=== PATIENT | male | born 1995 | race Caucasian/White ===

== ENCOUNTER 2017-08-03 22:34 | Inpatient (IN) | payer OTHER ==
[~2017-08-03] VITALS: Ht 160 cm; Wt 76.0 kg
[2017-08-03 22:36] VITALS: Ht 160 cm; Wt 76.0 kg
[2017-08-04 03:17] LABS: BASOPHIL % 1.6 % (0-2); PLATELET COUNT 273 x10^3mcL (130-400); RED CELL DISTRIBUTION WIDTH 13.3 % (11.5-14.5)
[2017-08-04 03:25] LABS: CALCIUM 8.3 mg/dL (8.5-10.1); CHLORIDE SERUM 107 mmol/L (98-107); CREATININE SERUM 0.9 mg/dL (0.7-1.3); GFR1 > 60 mL/min; GLUCOSE SERUM 121 mg/dL (74-106); POTASSIUM SERUM 3.7 mmol/L (3.5-5.1); SODIUM SERUM 142 mmol/L (136-145)
[2017-08-04 03:36] LABS: ALBUMIN 3.8 g/dL (3.4-5.0); ALKALINE PHOSPHATASE 218 U/L (46-116); ALT/SGPT 792 U/L (16-63); AST/SGOT 478 U/L (15-37); BILIRUBIN TOTAL 0.74 mg/dL (0.20-1.00)
[2017-08-04 03:43] LABS: LIPASE 5449 IU/L (73-393)
[2017-08-04 06:12] VITALS: BP 119/68
[2017-08-04 06:28] VITALS: BP 119/68
[2017-08-04 08:00] VITALS: BP 124/65
[2017-08-04 13:21] LABS: PHOSPHOROUS 3.7 mg/dL (2.5-4.9)
[2017-08-04 13:32] LABS: CHOLESTEROL/HDL RATIO 2.9
[2017-08-04 13:51] LABS: T3 TOTAL 0.77 ng/mL
[2017-08-04 14:10] LABS: FREE T4 1.15 ng/dL (0.76-1.46); T4(THYROXINE) 8.4 ug/dL (4.7-13.3)
[2017-08-04 15:17] LABS: UA SPECIFIC GRAVITY >=1.030 (1.005-1.035); microscopic required? YES; urine erythrocyte NEGATIVE (NEGATIVE)
[2017-08-04 15:38] LABS: AMPHETAMINE QUAL UR NONE DETECTED (NEG <=1000)
[2017-08-04 18:17] VITALS: BP 124/75
[2017-08-04 21:58] VITALS: BP 135/84
[2017-08-05 06:11] VITALS: BP 128/76
[2017-08-05 07:48] LABS: CALCIUM 8.2 mg/dL (8.5-10.1); CARBON DIOXIDE 26.4 mmol/L (21-32); CHLORIDE SERUM 104 mmol/L (98-107); CREATININE SERUM 0.7 mg/dL (0.7-1.3); GFR1 > 60 mL/min; GLUCOSE SERUM 127 mg/dL (74-106); MAGNESIUM 1.9 mg/dL (1.8-2.4); PHOSPHOROUS 2.9 mg/dL (2.5-4.9); POTASSIUM SERUM 3.9 mmol/L (3.5-5.1); SODIUM SERUM 138 mmol/L (136-145)
[2017-08-05 07:55] LABS: BASOPHIL % 0.2 % (0-2); PLATELET COUNT 227 x10^3mcL (130-400); RED CELL DISTRIBUTION WIDTH 13.9 % (11.5-14.5)
[2017-08-05 10:30] LABS: BILIRUBIN DIRECT 0.19 mg/dL (0.0-0.2); BILIRUBIN TOTAL 0.74 mg/dL (0.20-1.00)
[2017-08-05 10:32] LABS: ALBUMIN 3.1 g/dL (3.4-5.0)
[2017-08-05 12:21] VITALS: BP 127/67
[2017-08-05 15:31] VITALS: BP 122/67
[2017-08-05 18:58] VITALS: BP 139/77
[2017-08-05 21:18] VITALS: BP 125/53
[2017-08-06 06:04] VITALS: BP 107/69
[2017-08-06 07:46] LABS: ALKALINE PHOSPHATASE 102 U/L (46-116); ALT/SGPT 303 U/L (16-63); AST/SGOT 98 U/L (15-37); BILIRUBIN TOTAL 0.63 mg/dL (0.20-1.00); CALCIUM 8.2 mg/dL (8.5-10.1); CARBON DIOXIDE 25.8 mmol/L (21-32); CHLORIDE SERUM 106 mmol/L (98-107); CREATININE SERUM 0.7 mg/dL (0.7-1.3); GFR1 > 60 mL/min; GLUCOSE SERUM 90 mg/dL (74-106); LIPASE 320 IU/L (73-393); PHOSPHOROUS 2.8 mg/dL (2.5-4.9); SODIUM SERUM 139 mmol/L (136-145)
[2017-08-06 07:50] LABS: BASOPHIL % 0.1 % (0-2); PLATELET COUNT 182 x10^3mcL (130-400); RED CELL DISTRIBUTION WIDTH 13.4 % (11.5-14.5)
[2017-08-06 07:52] LABS: ALBUMIN 2.7 g/dL (3.4-5.0); AMYLASE 125 U/L (25-115); TOTAL PROTEIN, SERUM 5.8 g/dL (6.4-8.2)
[2017-08-06 09:53] VITALS: BP 107/69
[2017-08-06 10:45] VITALS: BP 131/71
[2017-08-06] MEDS ORDERED: APAP/HYDROCODON1 T13 PO (10:53)
[2017-08-06] MEDS ORDERED: TYL325 PO (10:54)
[2017-08-06] MEDS ORDERED: COL100 PO (10:56)
[2017-08-06] MEDS ORDERED: LIB25 PO (10:56)
[2017-08-06] MEDS ORDERED: FOL1 PO (10:58)
[2017-08-06] MEDS ORDERED: THI100 PO (10:58)
== END 2017-08-06 13:35 | disposition home or self-care (01) | DRG 263 ==
LOC: ED 22:34 → DU 08-04 05:24 → MU 08-06 06:29
PROVIDERS: Emergency Medicine; Family Medicine; Student in an Organized Health Care Education/Training Program; Surgery
PROC: 0FT44ZZ Resection of Gallbladder, Percutaneous Endoscopic Approach (ICD-10-PCS; principal; 2017-08-04 10:00)
DX: K80.20 Calculus of gallbladder without cholecystitis without obstruction (principal); N17.0 Acute kidney failure with tubular necrosis; G92 Toxic encephalopathy; E43 Unspecified severe protein-calorie malnutrition; K85.10 Biliary acute pancreatitis without necrosis or infection; G31.2 Degeneration of nervous system due to alcohol; K70.0 Alcoholic fatty liver; F12.10 Cannabis abuse, uncomplicated; F10.188 Alcohol abuse with other alcohol-induced disorder; F17.210 Nicotine dependence, cigarettes, uncomplicated; D64.9 Anemia, unspecified; E66.3 Overweight; Z68.29 Body mass index [BMI] 29.0-29.9, adult; Y90.0 Blood alcohol level of less than 20 mg/100 ml
CPT/HCPCS: 83880; 84439; 94150; C1887; G0480; J0330; J1170; J1200; J1885; J2250; J2270; J2405; J2543; J2704; J2710; J2765; J3010; J3490; J7030; J7120; Q0092; Q0162; Q9967